=== PATIENT | male | born 1980 | race Caucasian/White ===

== ENCOUNTER → 2017-02-10 10:48 | Outpatient (CLI) | payer BC ==
[2016-05-19 09:10] VITALS: BMI 25.1
[~2017-02-10 10:48] MED LIST: DEPAKOTE500 MG PO; HYDROCODON-ACE1 EAC7 PO
== END | disposition home or self-care (01) ==
LOC: D.MRI 02-01 14:00
DX: M54.16 Radiculopathy, lumbar region (principal)

== ENCOUNTER → 2017-03-17 07:50 | Outpatient (CLI) | payer BC ==
[2016-05-19 09:10] VITALS: BMI 25.1
== END ==
LOC: D.MRI 02-25 08:00
DX: N28.89 Other specified disorders of kidney and ureter (principal)

== ENCOUNTER 2017-05-07 17:58 | Emergency (ER) | payer BC ==
[2016-05-19 09:10] VITALS: BMI 25.1
[2017-05-07 18:44] LABS: BASOPHILS 0.2 % (0-2); EOSINOPHILS 2.7 % (0-7); IMMATURE GRANULOCYTES 0.3 % (0-5); LYMPHOCYTES 21.1 % (15-50); MCH 31.5 pg (26.0-34.0); MCHC 35.7 g/dL (31.0-37.0); MCV 88.2 fL (80.0-100.0); MEAN PLATELET VOLUME 9.1 fL (7.4-10.4); MONOCYTES 11.4 % (2-11); NEUTROPHILS 64.3 % (40-80); PLATELET COUNT 181 10x3/uL (130-400); RBC 4.76 10x6/uL (4.20-6.10); RDW 12.2 % (11.5-14.5); WBC 8.9 10x3/uL (4.8-10.8)
[2017-05-07 18:54] LABS: CALC OSMOLALITY 273 mosm/kg (275-300); CHLORIDE - SERUM 102 mmol/L (98-107); CREATININE - SERUM 1.1 mg/dL (0.6-1.3); GLUCOSE 87 mg/dL (74-106); POTASSIUM - SERUM 3.8 mmol/L (3.5-5.1); SODIUM 137 mmol/L (136-145); UREA NITROGEN 14 mg/dL (7-18); eGFR NON AFRICAN AMERICAN 80 mL/min (90-120)
[2017-05-07 18:55] LABS: PHENYTOIN (DILANTIN) < 0.5 ug/mL (10.0-20.0)
== END 2017-05-07 19:45 | disposition home or self-care (01) ==
LOC: D.ER 17:58
PROVIDERS: Nurse Practitioner Acute Care
DX: R56.9 Unspecified convulsions (principal); S33.5XXA Sprain of ligaments of lumbar spine, initial encounter; W19.XXXA Unspecified fall, initial encounter; Y93.89 Activity, other specified; Y92.029 Unspecified place in mobile home as the place of occurrence of the external cause; S40.011A Contusion of right shoulder, initial encounter

== ENCOUNTER 2018-08-04 13:52 | Emergency (ER) | payer MEDICAID ==
[~2018-08-04] VITALS: Ht 177.8 cm; Wt 75.0 kg
[2018-08-04 13:54] VITALS: Ht 177.8 cm; Wt 75.0 kg
[2018-08-04 14:17] LABS: BASOPHILS 0.3 % (0-2); EOSINOPHILS 2.1 % (0-7); HEMATOCRIT 46.1 % (42.0-54.0); HEMOGLOBIN 16.6 g/dL (13.5-17.5); IMMATURE GRANULOCYTES 0.3 % (0-5); LYMPHOCYTES 14.9 % (15-50); MCH 31.6 pg (26.0-34.0); MCV 87.8 fL (80.0-100.0); MEAN PLATELET VOLUME 9.6 fL (7.4-10.4); MONOCYTES 9.4 % (2-11); RBC 5.25 10x6/uL (4.20-6.10); RDW 12.6 % (11.5-14.5); WBC 11.7 10x3/uL (4.8-10.8)
[2018-08-04 14:30] LABS: UDS - AMPHET NEGATIVE QUAL (NEGATIVE); UDS - BARB NEGATIVE QUAL (NEGATIVE); UDS - BENZO NEGATIVE QUAL (NEGATIVE); UDS - COCAINE NEGATIVE QUAL (NEGATIVE); UDS - OPIATE NEGATIVE QUAL (NEGATIVE); UDS - PCP NEGATIVE QUAL (NEGATIVE); UDS - THC POSITIVE QUAL (NEGATIVE)
[2018-08-04 14:31] LABS: ANION GAP 12.8 mmol/L (8-16); BILIRUBIN - TOTAL 0.94 mg/dL (0.2-1.3); CALCIUM 9.1 mg/dL (8.5-10.1); CREATININE - SERUM 1.2 mg/dL (0.6-1.3); MAGNESIUM - SERUM 2.2 mg/dL (1.8-2.4); POTASSIUM - SERUM 3.8 mmol/L (3.5-5.1); PROTEIN - SERUM 7.9 g/dL (6.4-8.2)
[2018-08-04 14:34] LABS: PLATELET COUNT 222 10x3/uL (130-400)
[2018-08-04 14:43] LABS: APPEARANCE CLEAR (CLEAR); BACTERIA FEW /hpf (NONE SEEN); BILIRUBIN NEGATIVE (NEGATIVE); COLOR YELLOW (YELLOW); EPITHELIAL CELLS RARE /hpf (0-5); GLUCOSE NEGATIVE (NEGATIVE); KETONE SMALL mg/dL (NEGATIVE); NITRITE NEGATIVE (NEGATIVE); PROTEIN TRACE mg/dL (NEGATIVE); RED CELLS - URINE RARE /hpf (0-5); SPECIFIC GRAVITY 1.025 (1.005-1.020); UROBILINOGEN NORMAL (NORMAL); WHITE CELLS - URINE RARE /hpf (0-5)
[2018-08-04] MEDS ORDERED: DEPAKOTE500 MG PO (15:24)
[2018-08-04 16:07] VITALS: BP 131/86
== END 2018-08-04 16:07 | disposition home or self-care (01) ==
LOC: D.ER 13:52
PROVIDERS: Emergency Medicine
DX: G40.909 Epilepsy, unspecified, not intractable, without status epilepticus (principal); Z91.14 Patient's other noncompliance with medication regimen

== ENCOUNTER → 2018-10-05 11:51 | Outpatient (CLI) | payer MEDICAID ==
[2018-08-04 13:54] VITALS: BMI 23.7
== END | disposition home or self-care (01) ==
LOC: D.MRI 11:51
PROVIDERS: ATTEND Orthopaedic Surgery
DX: M25.511 Pain in right shoulder (principal)

== ENCOUNTER 2019-04-18 13:11 | Emergency (ER) | payer MEDICAID ==
[~2019-04-18] VITALS: Ht 177.8 cm; Wt 81.8 kg
[2019-04-18 13:15] VITALS: Ht 177.8 cm; Wt 81.8 kg
[2019-04-18 13:58] LABS: BASOPHILS 0.4 % (0-2); EOSINOPHILS 3.6 % (0-7); HEMATOCRIT 42.8 % (42.0-54.0); HEMOGLOBIN 15.2 g/dL (13.5-17.5); IMMATURE GRANULOCYTES 0.3 % (0-5); LYMPHOCYTES 20.9 % (15-50); MCH 32.1 pg (26.0-34.0); MCHC 35.5 g/dL (31.0-37.0); MCV 90.5 fL (80.0-100.0); NEUTROPHILS 60.8 % (40-80); RBC 4.73 10x6/uL (4.20-6.10); WBC 7.4 10x3/uL (4.8-10.8)
[2019-04-18 14:03] LABS: PLATELET COUNT 151 10x3/uL (130-400)
[2019-04-18 14:05] LABS: ALBUMIN 3.7 g/dL (3.4-5.0); ALKALINE PHOSPHATASE 46 U/L (46-116); ALT (SGPT) 16 U/L (10-68); BILIRUBIN - TOTAL 0.47 mg/dL (0.2-1.3); CALC OSMOLALITY 275 mosm/kg (275-300); CALCIUM 8.6 mg/dL (8.5-10.1); CARBON DIOXIDE 30.1 mmol/L (21.0-32.0); CHLORIDE - SERUM 104 mmol/L (98-107); CREATININE - SERUM 1.1 mg/dL (0.6-1.3); GLUCOSE 82 mg/dL (74-106); MAGNESIUM - SERUM 1.9 mg/dL (1.8-2.4); POTASSIUM - SERUM 4.1 mmol/L (3.5-5.1); PROTEIN - SERUM 7.3 g/dL (6.4-8.2); SODIUM 140 mmol/L (136-145); UREA NITROGEN 7 mg/dL (7-18); eGFR NON AFRICAN AMERICAN 79 mL/min (90-120)
[2019-04-18 14:41] LABS: APPEARANCE CLEAR (CLEAR); BILIRUBIN NEGATIVE (NEGATIVE); COLOR YELLOW (YELLOW); GLUCOSE NEGATIVE (NEGATIVE); KETONE NEGATIVE (NEGATIVE); NITRITE NEGATIVE (NEGATIVE); PROTEIN NEGATIVE (NEGATIVE); UROBILINOGEN NORMAL (NORMAL)
[2019-04-18 14:47] LABS: UDS - AMPHET NEGATIVE QUAL (NEGATIVE); UDS - BARB NEGATIVE QUAL (NEGATIVE); UDS - BENZO NEGATIVE QUAL (NEGATIVE); UDS - COCAINE NEGATIVE QUAL (NEGATIVE); UDS - OPIATE NEGATIVE QUAL (NEGATIVE); UDS - PCP NEGATIVE QUAL (NEGATIVE); UDS - THC POSITIVE QUAL (NEGATIVE)
[2019-04-18] MEDS ORDERED: ZOFRAN ODT4 MG/UDTAB PO (15:17)
[2019-04-18 16:31] VITALS: BP 116/86
== END 2019-04-18 16:14 | disposition home or self-care (01) ==
LOC: D.ER 13:11
PROVIDERS: Emergency Medicine
DX: G40.909 Epilepsy, unspecified, not intractable, without status epilepticus (principal)

== ENCOUNTER 2019-07-30 14:39 | Emergency (ER) | payer MEDICAID ==
[~2019-07-30] VITALS: Ht 177.8 cm; Wt 72.7 kg
[~2019-07-30 14:39] MED LIST changes: +ZOFRAN ODT4 MG/UDTAB PO
[2019-07-30 14:43] VITALS: Ht 177.8 cm; Wt 72.7 kg
[2019-07-30] MEDS ORDERED: DEPAKOTE500 MG PO ×3 (14:46→14:47)
[2019-07-30 15:20] LABS: BASOPHILS 0.2 % (0-2); EOSINOPHILS 2.2 % (0-7); HEMATOCRIT 42.7 % (42.0-54.0); HEMOGLOBIN 15.2 g/dL (13.5-17.5); IMMATURE GRANULOCYTES 0.6 % (0-5); LYMPHOCYTES 21.7 % (15-50); MCH 32.3 pg (26.0-34.0); MCHC 35.6 g/dL (31.0-37.0); MCV 90.7 fL (80.0-100.0); MEAN PLATELET VOLUME 9.2 fL (7.4-10.4); MONOCYTES 11.4 % (2-11); NEUTROPHILS 63.9 % (40-80); RBC 4.71 10x6/uL (4.20-6.10); RDW 12.5 % (11.5-14.5); WBC 9.4 10x3/uL (4.8-10.8)
[2019-07-30 15:26] LABS: PLATELET COUNT 194 10x3/uL (130-400)
[2019-07-30 15:31] LABS: CALC OSMOLALITY 273 mosm/kg (275-300); CALCIUM 9.4 mg/dL (8.5-10.1); CARBON DIOXIDE 28.6 mmol/L (21.0-32.0); CHLORIDE - SERUM 102 mmol/L (98-107); CREATININE - SERUM 1.1 mg/dL (0.6-1.3); GLUCOSE 83 mg/dL (74-106); SODIUM 138 mmol/L (136-145); UREA NITROGEN 11 mg/dL (7-18); eGFR NON AFRICAN AMERICAN 79 mL/min (90-120)
[2019-07-30 15:38] LABS: ALBUMIN 3.7 g/dL (3.4-5.0); ALKALINE PHOSPHATASE 45 U/L (46-116); ALT (SGPT) 16 U/L (10-68); PROTEIN - SERUM 7.6 g/dL (6.4-8.2); VALPROIC ACID (DEPAKOTE) 69.2 ug/mL (50.0-100.0)
[2019-07-30 17:23] VITALS: BP 124/69
== END 2019-07-30 17:25 | disposition home or self-care (01) ==
LOC: D.ER 14:39
PROVIDERS: Family Medicine
DX: G40.909 Epilepsy, unspecified, not intractable, without status epilepticus (principal); S00.03XA Contusion of scalp, initial encounter; W19.XXXA Unspecified fall, initial encounter; Y93.9 Activity, unspecified; Y92.9 Unspecified place or not applicable